=== PATIENT | male | born 1985 | race Caucasian/White ===

== ENCOUNTER 2020-12-07 11:11 | Emergency (ER) | payer BC ==
[2020-12-07] MEDS ORDERED: HYDROCODON-ACE1 EAC4 PO (14:19)
== END 2020-12-07 14:30 | disposition home or self-care (01) ==
LOC: ER1 11:11
DX: S22.059A Unspecified fracture of T5-T6 vertebra, initial encounter for closed fracture (principal); M54.2 Cervicalgia; M54.9 Dorsalgia, unspecified; Z88.0 Allergy status to penicillin; W17.89XA Other fall from one level to another, initial encounter
CPT/HCPCS: 71046; 72125; 72128; 72131; 96372; 99285; J1885